=== PATIENT | female | born 2000 | race Caucasian/White ===

== ENCOUNTER 2021-03-19 11:14 | Outpatient (CLI) | payer BC ==
[~2021-03-19] VITALS: Ht 160 cm; Wt 53.5 kg
[2021-03-19 11:20] VITALS: BP 110/90
[2021-03-19] MEDS ORDERED: BAMLANIVIMAB 700 MG/ETESEVIMAB 1,400 MG IN NS IV ONE ×3 (11:45)
[2021-03-19] MEDS ORDERED: ACETAMINOPHEN 500 MG TAB (TYLENOL) PO PRN (11:45)
[2021-03-19] MEDS ORDERED: diphenhydrAMINE 50 MG/ML INJ (BENADRYL) IV PRN (11:45)
[2021-03-19] MEDS ORDERED: ONDANSETRON 4 MG/2 ML (SDV) Z0FRAN IV PRN (11:45)
[2021-03-19] MEDS ORDERED: EPINEPHrine INJECTION 1 MG/ML AMP IM PRN (11:45)
[2021-03-19 12:25] VITALS: BP 108/90
== END 2021-03-19 13:04 | disposition home or self-care (01) ==
LOC: INFUSION 11:14
PROVIDERS: ATTEND Physician Assistant
DX: U07.1 COVID-19 (principal)